=== PATIENT | male | born 1985 | race African-American/Black ===

== ENCOUNTER 2023-10-04 14:19 | Inpatient (IN) | payer OTHER ==
[2023-10-04 15:01] VITALS: BMI 17.8
[2023-10-04] MEDS ORDERED: MAG HYDROX/AL HYDROX/SIMETH 30 ML UNIT-DOSE CUP PO PRN (17:37)
[2023-10-04] MEDS ORDERED: POLYETHYLENE GLYCOL (HEALTHYLAX) 3350 17 GM PACKET PO PRN (17:37)
[2023-10-04] MEDS ORDERED: BENZONATATE 200 MG CAPSULE PO PRN (17:37)
[2023-10-04] MEDS ORDERED: BISMUTH SUBSALICYLATE 524 MG/30 ML PO PRN (17:37)
[2023-10-04] MEDS ORDERED: guaiFENesin 600 MG TABLET.ER (FP) PO PRN (17:37)
[2023-10-04] MEDS ORDERED: NALOXONE HCL 0.4 MG/ML VIAL IM PRN (17:37)
[2023-10-04] MEDS ORDERED: BENZOCAINE/MENTHOL (CHLORASEPTIC ) LOZENGE MM PRN (17:37)
[2023-10-04] MEDS ORDERED: IBUPROFEN 600 MG TABLET (FP) PO PRN (17:37)
[2023-10-04] MEDS ORDERED: NALOXONE (NARCAN) HCL 4 MG/0.1 ML SPRAY NS PRN (17:37)
[2023-10-04] MEDS ORDERED: ACETAMINOPHEN 325 MG TABLET (FP) PO PRN (17:37)
[2023-10-04] MEDS ORDERED: IBUPROFEN 400 MG TABLET (FP) PO PRN (17:37)
[2023-10-04] MEDS ORDERED: DICYCLOMINE HCL 10 MG CAPSULE PO PRN (17:37)
[2023-10-04] MEDS ORDERED: methaDONE HCL 10 MG TABLET (FOR DETOX USE ONLY) ONE (17:59)
[2023-10-04] MEDS: methaDONE HCL 10 MG TABLET (FOR DETOX USE ONLY) PO ONE (18:04)
[2023-10-04] MEDS: cloNIDine HCL 0.1 MG TABLET PO PRN (18:24)
[2023-10-04] MEDS: hydrOXYzine PAMOATE 25 MG CAPSULE (FP) PO PRN (18:25)
[2023-10-04] MEDS: MELATONIN 5 MG TABLETS PO SCH (22:17)
[2023-10-04] MEDS: METHOCARBAMOL 500 MG TABLET PO PRN (22:18)
[2023-10-04] MEDS: THIAMINE 100 MG TABLET PO SCH (22:18)
[2023-10-05] MEDS: PRENATAL VITAMINS W/ FOLIC ACID TABLET (FP) PO SCH (09:27)
[2023-10-05 10:36] LABS: HEMATOCRIT 39.5 % (35.4-49); HEMOGLOBIN 13.3 GM/dL (11.7-16.9); MCH 32.3 pg (25.7-33.7); MCHC 33.7 g/dl (32.0-35.9); PLATELET COUNT 286 10^3/uL (134-434); RBC 4.12 M/mm3 (4.00-5.60); RDW 14.1 % (11.9-15.9); WHITE BLOOD COUNT 7.8 K/mm3 (4.0-10.0)
[2023-10-05 10:37] LABS: CHLORIDE 108 mmol/L (98-107); POTASSIUM 3.8 mmol/L (3.5-5.1); SODIUM 140 mmol/L (136-145)
[2023-10-05 10:43] LABS: CALCIUM 8.6 mg/dL (8.5-10.1)
[2023-10-05 10:44] LABS: ANION GAP 6 mmol/L (4-13); BLOOD UREA NITROGEN 9.8 mg/dL (7-18); CO2 26 mmol/L (21-32)
[2023-10-05 10:46] LABS: GLUCOSE,RANDOM 121 mg/dL (74-106)
[2023-10-05] MEDS: LOPERAMIDE HCL 2 MG CAPSULE PO PRN (10:47)
[2023-10-05] MEDS: ONDANSETRON *ODT* 4 MG TABLET SL PRN (10:48)
[2023-10-05 10:49] LABS: BILIRUBIN,TOTAL 0.4 mg/dL (0.2-1); CREATININE 0.8 mg/dL (0.55-1.3); SGOT/AST 19 U/L (15-37); SGPT/ALT 28 U/L (13-61); TOT PROT 6.1 g/dl (6.4-8.2)
[2023-10-05 10:50] LABS: ALK PHOS 66 U/L (45-117)
[2023-10-05] MEDS: QUEtiapine FUMARATE 400 MG TABLET PO SCH (22:33)
[2023-10-05] MEDS: traZODone HCL 100 MG TABLET (FP) PO SCH (22:33)
[2023-10-05] MEDS: PRAZOSIN HCL 1 MG CAPSULE PO SCH (22:35)
[2023-10-06] MEDS ORDERED: methaDONE HCL 10 MG TABLET PO ONE (08:36)
[2023-10-06] MEDS ORDERED: methaDONE HCL 10 MG TABLET (FOR DETOX USE ONLY) PO ONE (10:00)
[2023-10-06] MEDS: methaDONE HCL 10 MG TABLET PO ONE (10:37)
[2023-10-07] MEDS: methaDONE 40 MG, methaDONE 10 MG PO ONE (09:28)
[2023-10-08] MEDS ORDERED: methaDONE HCL 10 MG TABLET (FOR DETOX USE ONLY) PO ONE (10:00)
[2023-10-08] MEDS: methaDONE 40 MG, methaDONE 20 MG PO ONE (10:13)
[2023-10-09] MEDS: methaDONE 40 MG, methaDONE 30 MG PO ONE (09:38)
[2023-10-10] MEDS: methaDONE 40 MG, methaDONE 30 MG PO ONE ×2 (09:08→10:49)
[2023-10-10] MEDS: MAGNESIUM HYDROX 2400MG/30ML ORAL SUSPENSION 30 ML CUP PO PRN (10:59)
[2023-10-10 13:27] VITALS: BP 114/74; PULSE 78; RESP 18; TEMP 98.7
== END 2023-10-10 15:23 | disposition other institution (70) | DRG 773 ==
LOC: YASAS 14:19 → Y6N 17:44
PROVIDERS: ADMIT Allergy & Immunology; ATTEND Surgery
PROC: HZ2ZZZZ Detoxification Services for Substance Abuse Treatment (ICD-10-PCS; principal; 2023-10-04)
DX: F11.23 Opioid dependence with withdrawal (principal); F12.20 Cannabis dependence, uncomplicated; F25.1 Schizoaffective disorder, depressive type; F43.10 Post-traumatic stress disorder, unspecified; F19.982 Other psychoactive substance use, unspecified with psychoactive substance-induced sleep disorder; Z86.69 Personal history of other diseases of the nervous system and sense organs; Z56.0 Unemployment, unspecified; Z59.01 Sheltered homelessness
CPT/HCPCS: 36415; 80053; 80305; 80307; 85027; 86780; 87811; 93005; 93010; Q0162

== ENCOUNTER 2023-10-10 15:29 | Inpatient (IN) | payer OTHER ==
[2023-10-10] MEDS ORDERED: LOPERAMIDE HCL 2 MG CAPSULE PO PRN (15:50)
[2023-10-10] MEDS ORDERED: IBUPROFEN 600 MG TABLET (FP) PO PRN (15:50)
[2023-10-10] MEDS ORDERED: BENZOCAINE/MENTHOL (CHLORASEPTIC ) LOZENGE MM PRN (15:50)
[2023-10-10] MEDS ORDERED: NALOXONE HCL 0.4 MG/ML VIAL IM PRN (15:50)
[2023-10-10] MEDS ORDERED: NICOTINE POLACRILEX 2 MG GUM BUC PRN (15:50)
[2023-10-10] MEDS ORDERED: IBUPROFEN 400 MG TABLET (FP) PO PRN (15:50)
[2023-10-10] MEDS ORDERED: MAG HYDROX/AL HYDROX/SIMETH 30 ML UNIT-DOSE CUP PO PRN (15:50)
[2023-10-10] MEDS ORDERED: BENZONATATE 200 MG CAPSULE PO PRN (15:50)
[2023-10-10] MEDS ORDERED: NALOXONE (NARCAN) HCL 4 MG/0.1 ML SPRAY NS PRN (15:50)
[2023-10-10] MEDS ORDERED: NICOTINE 7 MG/24 HOURS TOPICAL PATCH TD PRN (15:50)
[2023-10-10] MEDS ORDERED: guaiFENesin 600 MG TABLET.ER (FP) PO PRN (15:50)
[2023-10-10] MEDS ORDERED: NICOTINE POLACRILEX 2 MG LOZENGE BC PRN (15:50)
[2023-10-10] MEDS: MAGNESIUM HYDROX 2400MG/30ML ORAL SUSPENSION 30 ML CUP PO PRN (16:45)
[2023-10-10] MEDS: traZODone HCL 100 MG TABLET (FP) PO SCH (21:49)
[2023-10-10] MEDS: PRAZOSIN HCL 1 MG CAPSULE PO SCH (21:49)
[2023-10-10] MEDS: THIAMINE 100 MG TABLET PO SCH (21:49)
[2023-10-10] MEDS: QUEtiapine FUMARATE 400 MG TABLET PO SCH (21:49)
[2023-10-10] MEDS: MELATONIN 5 MG TABLETS PO SCH (21:49)
[2023-10-11] MEDS ORDERED: methaDONE HCL 10 MG TABLET PO SCH (06:00)
[2023-10-11] MEDS: methaDONE 40 MG, methaDONE 30 MG PO SCH (06:45)
[2023-10-11] MEDS: PRENATAL VITAMINS W/ FOLIC ACID TABLET (FP) PO SCH (10:32)
[2023-10-11] MEDS: POLYETHYLENE GLYCOL (HEALTHYLAX) 3350 17 GM PACKET PO PRN (18:46)
[2023-10-12] MEDS: SODIUM PHOSPHATE/NA BIPHOS 133 ML ENEMA RC ONE (16:03)
[2023-10-12] MEDS: BISACODYL 10 MG SUPP.RECT PR PRN (17:10)
[2023-10-12] MEDS: DOCUSATE SODIUM 100 MG CAPSULE (FP) PO PRN (21:40)
[2023-10-15] MEDS: traZODone HCL 100 MG TABLET (FP) PO SCH (21:41)
[2023-10-15] MEDS: hydrOXYzine PAMOATE 25 MG CAPSULE (FP) PO PRN (21:42)
[2023-10-15] MEDS: QUEtiapine FUMARATE 200 MG TABLET PO SCH (22:04)
[2023-10-16] MEDS: methaDONE HCL 10 MG TABLET PO ONE (14:10)
[2023-10-16] MEDS: SELENIUM SULFIDE 2.5% LOTION 4 OZ. TP SCH (14:12)
[2023-10-17] MEDS: methaDONE HCL 40 MG DISPERSABLE TABLET PO SCH (06:11)
[2023-10-21] MEDS: ACETAMINOPHEN 325 MG TABLET (FP) PO PRN (21:37)
[2023-10-29] MEDS: SELENIUM SULFIDE 2.25% 180 ML SHAMPOO TP SCH (15:13)
[2023-10-29] MEDS: HYDROCORTISONE 1% TOPICAL CREAM 30 GM TUBE TP PRN (15:53)
[2023-11-02] MEDS: traZODone HCL 50 MG TABLET (FP) PO SCH (21:47)
[2023-11-06 10:08] VITALS: RESP 18
[2023-11-07 07:00] VITALS: TEMP 98
[2023-11-07 09:20] VITALS: BP 113/65; PULSE 92
== END 2023-11-07 09:25 | disposition home or self-care (01) | DRG 772 ==
LOC: YASAS 15:29 → Y3NR 15:36 → Y3W 10-14 11:24
PROVIDERS: ADMIT Allergy & Immunology; ATTEND Psychiatry & Neurology Pain Medicine
PROC: HZ42ZZZ Group Counseling for Substance Abuse Treatment, Cognitive-Behavioral (ICD-10-PCS; principal; 2023-10-10)
DX: F11.20 Opioid dependence, uncomplicated (principal); F14.20 Cocaine dependence, uncomplicated; F12.20 Cannabis dependence, uncomplicated; F17.210 Nicotine dependence, cigarettes, uncomplicated; F31.9 Bipolar disorder, unspecified; F20.9 Schizophrenia, unspecified; F19.282 Other psychoactive substance dependence with psychoactive substance-induced sleep disorder; F19.280 Other psychoactive substance dependence with psychoactive substance-induced anxiety disorder; F19.24 Other psychoactive substance dependence with psychoactive substance-induced mood disorder; F43.10 Post-traumatic stress disorder, unspecified; G40.909 Epilepsy, unspecified, not intractable, without status epilepticus; L40.9 Psoriasis, unspecified
CPT/HCPCS: 82962